=== PATIENT | male | born 1970 | race Caucasian/White ===

== ENCOUNTER 2017-05-22 08:40 | Emergency (ER) | payer BC, OTHER ==
[2017-05-22 08:44] VITALS: BP 148/100; PULSE 80; TEMP 97.9; BMI 34.8
[2017-05-22] MEDS ORDERED: KETOROLAC TROMETHAMINE 60 MG/2 ML VIAL IM ONE (09:07)
[2017-05-22] MEDS ORDERED: KETOROLAC TROMETHAMINE 60 MG/2 ML VIAL ONE (09:08)
--- NOTE | 2017-05-22 09:18 | PDOC ---
History of Present Illness - General Chief Complaint: Pain Stated Complaint: SWOLLEN FOOT Time Seen by Provider: 05/22/17 09:00 History Source: Patient, Spouse Exam Limitations: No Limitations - History of Present Illness Initial Comments: 05/22/17 09:07 Patient came for evaluation of swollen and tender left foot. States has been on and off and progressively worsening over the past few weeks. States pain started on the plantar aspect of his left foot between his second and third metatarsals and has progressively worsened to affect his MCP first digit and has progressed to a swollen and very tender left foot. Denies any knowledge of trauma, denies any exercise or walking changes. Has not changed his footwear. Denies fever or any injury/infection noted. Has never suffered from gout or any other inflammatory diseases. Occurred: reports: last week, other Severity: reports: moderate Pain Location: reports: lower extremity Method of Injury: Yes: unknown Modifying Factors: improves with: None Loss of Consciousness: no loss of consciousness Associated Symptoms (Fall): denies symptoms (left foot) Past History - Travel Traveled outside of the country in the last 30 days: No Close contact w/someone who was outside of country & ill: No - Past Medical History Allergies/Adverse Reactions: Allergies Allergy/AdvReac Type Severity Reaction Status Date / Time No Known Allergies Allergy Verified 05/22/17 08:41 Home Medications: Ambulatory Orders Indomethacin [Indocin -] 50 mg PO TID #21 capsule 05/22/17 COPD: No - Immunization History Immunization Up to Date: Yes - Suicide/Smoking/Psychosocial Hx Smoking History: Never smoked Review of Systems - Review of Systems Able to Perform ROS?: Yes Is the patient limited [place] proficient: Yes Constitutional: Yes: Symptoms Reported, See HPI, Malaise HEENTM: Yes: See HPI. No: Symptoms Reported Respiratory: Yes: See HPI. No: Symptoms reported, Cough Musculoskeletal: Yes: Symptoms Reported, See HPI, Joint Swelling, Joint Stiffness Integumentary: Yes: Symptoms Reported, Erythema All Other Systems: Reviewed and Negative *Physical Exam - Vital Signs Last Vital Signs Temp Pulse Resp BP Pulse Ox 97.9 F 80 18 148/100 99 05/22/17 08:41 05/22/17 08:41 05/22/17 08:41 05/22/17 08:41 05/22/17 08:41 - Physical Exam General Appearance: Yes: Nourished, Appropriately Dressed, Apparent Distress, Mild Distress, Moderate Distress HEENT: positive: JORGE, Normal ENT Inspection, TMs Normal, Pharynx Normal Neck: positive: Supple. negative: Tender Respiratory/Chest: positive: Lungs Clear Gastrointestinal/Abdominal: positive: Soft Extremity: positive: Normal Capillary Refill, Normal Range of Motion, Pedal Edema, Swelling (with tenderness worse at first digit MTP . Has erythema and pain with flexion and extension to digits. No streaking, and worse tenderness is primarily at the low medial aspect of first MTP). 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 We'll treat for inflammatory disease, probable gout and have follow-up with PMD. *DC/Admit/Observation/Transfer Diagnosis at time of Disposition: Gout Qualifiers: Gout site: foot Gout etiology: unspecified cause Chronicity: acute Laterality: left Qualified Code(s): M10.9 - Gout, unspecified - Discharge Dispostion Disposition: HOME Condition at time of disposition: Stable Admit: No - Prescriptions Prescriptions: Indomethacin [Indocin -] 50 mg PO TID #21 capsule - Referrals Referrals: Ronald Bradley MD [Staff Physician] - - Patient Instructions Printed Discharge Instructions: DI for Gout Additional Instructions: Rest, ice to area on and off for 15 minutes 4-6 times a day Avoid heavy lifting or exercise until pain and swelling is resolved or until further directed Keep area highly elevated to reduce swelling Use splints/Clarke wrap as directed Followup with orthopedist in one to 2 days if not improving, if significantly improved may wait one week for followup with orthopedist May use ibuprofen 2-200 mg tablets every 6 hours as needed for pain - Post Discharge Activity Forms/Work/School Notes: Back to Work
== END 2017-05-22 10:03 | disposition home or self-care (01) ==
LOC: JERFT 08:40
PROC: 3E0233Z Introduction of Anti-inflammatory into Muscle, Percutaneous Approach (ICD-10-PCS; principal; 2017-05-22)
DX: M10.9 Gout, unspecified (principal)
CPT/HCPCS: 73630-TC-LT; 99281-25

== ENCOUNTER 2018-04-03 10:15 | Emergency (ER) | payer BC, OTHER ==
[2018-04-03 10:45] VITALS: BP 132/92; PULSE 84; TEMP 98.8; BMI 37.3
--- NOTE | 2018-04-03 11:12 | PDOC ---
History of Present Illness - General Chief Complaint: Cold Symptoms Stated Complaint: R/O FLU Time Seen by Provider: 04/03/18 10:50 History Source: Patient Exam Limitations: No Limitations - History of Present Illness Initial Comments: 04/03/18 11:53 48 yr male no pmhx with nasal congestion cough and right ear pain with drainage for 3 days no fever, no airplane travel. taking OTC meds at home. Past History - Past Medical History Allergies/Adverse Reactions: Allergies Allergy/AdvReac Type Severity Reaction Status Date / Time No Known Allergies Allergy Verified 04/03/18 10:40 Home Medications: Ambulatory Orders Indomethacin [Indocin -] 50 mg PO TID #21 capsule 05/22/17 Amoxicillin/Potassium Clav [Augmentin 875-125 Tablet] 1 each PO BID #20 tablet 04/03/18 Fluticasone Prop 0.05% Nasal [Flonase -] 1 - 2 spray NS DAILY #1 spray.pump Ofloxacin 10 drop OD DAILY #1 bottle 04/03/18 COPD: No - Immunization History Immunization Up to Date: Yes - Suicide/Smoking/Psychosocial Hx Smoking History: Never smoked Hx Alcohol Use: No Drug/Substance Use Hx: No Respiratory Specific PMHX - Complaint Specific PMHX Bronchitis: No Pneumonia: No Review of Systems - Review of Systems Able to Perform ROS?: Yes Is the patient limited [place] proficient: No HEENTM: Yes: Symptoms Reported Respiratory: Yes: Symptoms reported *Physical Exam - Vital Signs Last Vital Signs Temp Pulse Resp BP Pulse Ox 98.8 F 84 18 132/92 99 04/03/18 10:41 04/03/18 10:41 04/03/18 10:41 04/03/18 10:41 04/03/18 10:41 - Physical Exam General Appearance: Yes: Nourished, Appropriately Dressed HEENT: positive: EOMI, JORGE, Nasal Congestion, TM Erythema, Other (right ear ruptured TM yellow drainage in canal with erythema negative mastoid tenderness, neg redness or swelling to the mastoid ). negative: Sinus Tenderness Neck: positive: Supple Respiratory/Chest: positive: Lungs Clear, Normal Breath Sounds. 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, Fully Oriented, Alert, Normal Mood/ Affect, Normal Response, Motor Strength 5/5 Moderate Sedation - Procedure Monitoring Vital Signs: Procedure Monitoring Vital Signs Temperature 98.8 F 04/03/18 10:41 Pulse Rate 84 04/03/18 10:41 Respiratory Rate 18 04/03/18 10:41 Blood Pressure 132/92 04/03/18 10:41 O2 Sat by Pulse Oximetry (%) 99 04/03/18 10:41 Medical Decision Making - Medical Decision Making 04/03/18 11:54 cc: ear pain with drainage, nasal congestion dry cough will treat for AOM with rupture augmentin and ofloxacin drops no water no qtips in ear flonase for congestion plan discussed with pt and his who understand the follow up plan all questions asked and answered at discharge. *DC/Admit/Observation/Transfer Diagnosis at time of Disposition: Nasal congestion Otitis media Qualifiers: Otitis media type: suppurative Chronicity: acute Laterality: right Recurrence: non-recurrent Spontaneous tympanic membrane rupture: with spontaneous rupture Qualified Code(s): H66.011 - Acute suppurative otitis media with spontaneous rupture of ear drum, right ear - Discharge Dispostion Disposition: HOME Condition at time of disposition: Good - Prescriptions Prescriptions: Amoxicillin/Potassium Clav [Augmentin 875-125 Tablet] 1 each PO BID #20 tablet Fluticasone Prop 0.05% Nasal [Flonase -] 1 - 2 spray NS DAILY #1 spray.pump Ofloxacin 10 drop OD DAILY #1 bottle - Referrals Referrals: Anthony Daley MD [Staff Physician] - - Patient Instructions Additional Instructions: follow with ENT if symptoms worsen or do not improve in 3-5 days take motrin or tylenol for pain as needed use flonase nasal spray once daily use saline spray during the day often as needed return if any worse - Post Discharge Activity Forms/Work/School Notes: Back to Work
== END 2018-04-03 11:17 | disposition home or self-care (01) ==
LOC: JER 10:15
DX: H66.011 Acute suppurative otitis media with spontaneous rupture of ear drum, right ear (principal)
CPT/HCPCS: 99281-25